=== PATIENT | female | born 1935 | race Caucasian/White ===

== ENCOUNTER 2017-08-04 11:14 | Inpatient (IN) | payer MEDICARE ==
[2017-08-04 12:05] LABS: ADD MAN DIFF? NO
[2017-08-04 12:08] LABS: WHITE BLOOD COUNT 9.6 10^3/ul (4.8-10.8)
[2017-08-04 12:08] LABS: BASOPHIL # 0.1 10^3/ul (0.0-0.1); BASOPHILS % 0.6 % (0.0-2.0); EOSINOPHILS # 0.2 10^3/ul (0.0-0.5); EOSINOPHILS % 1.6 % (0.0-7.0); HEMATOCRIT 38.6 % (37.0-47.0); HEMOGLOBIN 13.2 g/dl (12.0-16.0); LYMPHOCYTES # 1.9 10^3/ul (0.8-2.9); LYMPHOCYTES % 20.1 % (15.0-51.0); MEAN CORPUSCULAR HEMOGLOBIN 31.6 pg (29.0-33.0); MEAN CORPUSCULAR HGB CONC 34.2 g/dl (32.0-37.0); MEAN CORPUSCULAR VOLUME 92.3 fl (82.0-101.0); MEAN PLATELET VOLUME 11.8 fl (7.4-10.4); MONOCYTE # 0.7 10^3/ul (0.3-0.9); MONOCYTES % 7.5 % (0.0-11.0); NEUTROPHIL # 6.7 10^3/ul (1.6-7.5); NEUTROPHILS % 69.9 % (39.0-77.0); PLATELET COUNT 237 10^3/UL (140-415); RED BLOOD COUNT 4.18 10^6/ul (4.20-5.40); RED CELL DISTRIBUTION WIDTH 12.4 % (11.5-14.5)
[2017-08-04 12:38] LABS: ALANINE AMINOTRANSFERASE 21 IU/L (13-69); ALBUMIN 3.7 g/dl (3.3-4.9); ALBUMIN/GLOBULIN RATIO 1.23; ALKALINE PHOSPHATASE 64 IU/L (42-121); ANION GAP 14 (8-16); ASPARTATE AMINO TRANSFERASE 17 IU/L (15-46); BILIRUBIN,INDIRECT 0.7 mg/dl (0-1.1); BILIRUBIN,TOTAL 0.7 mg/dl (0.2-1.3); BLOOD UREA NITROGEN 21 mg/dl (7-20); CALCIUM 9.2 mg/dl (8.4-10.2); CARBON DIOXIDE 29 mmol/L (21-31); CHLORIDE 107 mmol/L (97-110); CREATININE 0.76 mg/dl (0.44-1.00); GLUCOSE 130 mg/dl (70-220); INR 0.98; POTASSIUM 4.2 mmol/L (3.5-5.1); PROTIME 13.1 Sec (11.9-14.9); SODIUM 146 mmol/L (135-144); TOTAL PROTEIN 6.7 g/dl (6.1-8.1)
[2017-08-04 12:39] LABS: PARTIAL THROMBOPLASTIN TIME 30.8 Sec (25.0-35.0)
[2017-08-04 12:49] LABS: B-TYPE NATRIURETIC PEPTIDE 1330 PG/ML (0-450)
[2017-08-04 12:58] LABS: VALPROATE < 10 ug/ml (50-100)
[2017-08-04 13:11] LABS: TROPONIN-I < 0.012 ng/ml (0.00-0.12)
[2017-08-04] MEDS: DILTIAZEM 50 MG INJ IV (13:27)
[2017-08-04] MEDS ORDERED: NACL 0.9% 3 ML SYG IV (14:30)
[2017-08-04] MEDS ORDERED: ACETAMINOPHEN 325 MG TAB PO ×2 (14:30)
[2017-08-04] MEDS ORDERED: HYDROCODONE/APAP (5/325) TAB PO (14:30)
[2017-08-04] MEDS ORDERED: ONDANSETRON 4 MG INJ IV ×2 (14:30)
[2017-08-04 15:00] LABS: HEMOGLOBIN A1C 5.4 % (0-5.9)
[2017-08-04 15:13] LABS: FREE T4 (FREE THYROXINE) 0.92 ng/dl (0.85-1.93)
[2017-08-04 19:26] LABS: CREATINE KINASE 78 IU/L (23-200)
[2017-08-04 19:36] LABS: CK INDEX 1.6; CK-MB 1.21 ng/ml (0.0-2.4)
[2017-08-04 19:38] LABS: TROPONIN-I < 0.012 ng/ml (0.00-0.12)
[2017-08-04] MEDS ORDERED: METOPROLOL 25 MG TAB PO (21:00)
[2017-08-04] MEDS: APIXABAN 5 MG TABLET PO (21:02)
[2017-08-04] MEDS: DIVALPROEX SPRINKLE 125 MG CAP PO (21:02)
[2017-08-04] MEDS: DILTIAZEM (CD) 120 MG CAP PO (21:03)
[2017-08-05 08:50] LABS: ADD MAN DIFF? NO
[2017-08-05 08:54] LABS: WHITE BLOOD COUNT 7.5 10^3/ul (4.8-10.8)
[2017-08-05 08:54] LABS: BASOPHILS % 0.5 % (0.0-2.0); EOSINOPHILS # 0.2 10^3/ul (0.0-0.5); HEMATOCRIT 35.4 % (37.0-47.0); HEMOGLOBIN 11.9 g/dl (12.0-16.0); LYMPHOCYTES # 2.4 10^3/ul (0.8-2.9); LYMPHOCYTES % 32.8 % (15.0-51.0); MEAN CORPUSCULAR HGB CONC 33.6 g/dl (32.0-37.0); MEAN CORPUSCULAR VOLUME 92.2 fl (82.0-101.0); MEAN PLATELET VOLUME 12.3 fl (7.4-10.4); MONOCYTE # 0.6 10^3/ul (0.3-0.9); MONOCYTES % 8.6 % (0.0-11.0); NEUTROPHIL # 4.2 10^3/ul (1.6-7.5); NEUTROPHILS % 55.8 % (39.0-77.0); PLATELET COUNT 193 10^3/UL (140-415); RED BLOOD COUNT 3.84 10^6/ul (4.20-5.40); RED CELL DISTRIBUTION WIDTH 12.7 % (11.5-14.5)
[2017-08-05] MEDS ORDERED: ENOXAPARIN 40 MG/0.4 ML SYG SC (09:00)
[2017-08-05 09:14] LABS: CHOLESTEROL 172 mg/dl (100-200)
[2017-08-05 09:14] LABS: CHOL/HDL RATIO 3.1 RATIO; HDL CHOLESTEROL 54 mg/dl (33-92); LDL CHOLESTEROL,CALCULATED 95 mg/dl; TRIGLYCERIDES 117 mg/dl (0-149)
[2017-08-05 09:21] LABS: ALANINE AMINOTRANSFERASE 24 IU/L (13-69); ALBUMIN 3.8 g/dl (3.3-4.9); ALBUMIN/GLOBULIN RATIO 1.26; ALKALINE PHOSPHATASE 69 IU/L (42-121); ANION GAP 13 (8-16); ASPARTATE AMINO TRANSFERASE 22 IU/L (15-46); BILIRUBIN,INDIRECT 0.8 mg/dl (0-1.1); BILIRUBIN,TOTAL 0.8 mg/dl (0.2-1.3); BLOOD UREA NITROGEN 23 mg/dl (7-20); CALCIUM 9.3 mg/dl (8.4-10.2); CARBON DIOXIDE 28 mmol/L (21-31); CHLORIDE 105 mmol/L (97-110); CREATININE 0.81 mg/dl (0.44-1.00); GLUCOSE 107 mg/dl (70-220); POTASSIUM 3.9 mmol/L (3.5-5.1); SODIUM 142 mmol/L (135-144); TOTAL PROTEIN 6.8 g/dl (6.1-8.1)
[2017-08-05] MEDS: DIVALPROEX SPRINKLE 125 MG CAP PO ×2 (09:22→13:11)
[2017-08-05 09:23] LABS: PHOSPHORUS 4.4 mg/dl (2.5-4.9)
[2017-08-05] MEDS: APIXABAN 5 MG TABLET PO (09:23)
[2017-08-05] MEDS: DILTIAZEM (CD) 120 MG CAP PO (09:23)
[2017-08-05] MEDS ORDERED: ATORVASTATIN 10 MG TAB PO (21:00)
== END 2017-08-05 14:06 | disposition home or self-care (01) | DRG 309 ==
LOC: E/R 11:14 → MS4 17:40
DX: I48.91 Unspecified atrial fibrillation (principal); E87.0 Hyperosmolality and hypernatremia; I10 Essential (primary) hypertension; R11.2 Nausea with vomiting, unspecified; E78.5 Hyperlipidemia, unspecified; F03.90 Unspecified dementia, unspecified severity, without behavioral disturbance, psychotic disturbance, mood disturbance, and anxiety; E86.0 Dehydration; E02 Subclinical iodine-deficiency hypothyroidism; Z79.02 Long term (current) use of antithrombotics/antiplatelets
CPT/HCPCS: 36415; 71045; 80053; 80061; 80164; 82550; 82553; 83036; 83735; 83880; 84100; 84439; 84443; 84484; 85025; 85610; 85730; 93005; 93306; 96374; 99291-25

== ENCOUNTER 2017-10-11 19:57 | Inpatient (IN) | payer MEDICARE, OTHER ==
[2017-10-11 20:36] LABS: ADD MAN DIFF? NO
[2017-10-11 20:40] LABS: BASOPHILS % 0.3 % (0.0-2.0); EOSINOPHILS % 0.1 % (0.0-7.0); HEMOGLOBIN 13.3 g/dl (12.0-16.0); LYMPHOCYTES # 2.2 10^3/ul (0.8-2.9); LYMPHOCYTES % 17.8 % (15.0-51.0); MEAN CORPUSCULAR HEMOGLOBIN 30.9 pg (29.0-33.0); MEAN CORPUSCULAR HGB CONC 33.3 g/dl (32.0-37.0); MEAN CORPUSCULAR VOLUME 92.8 fl (82.0-101.0); MEAN PLATELET VOLUME 12.2 fl (7.4-10.4); MONOCYTE # 1.4 10^3/ul (0.3-0.9); MONOCYTES % 11.4 % (0.0-11.0); NEUTROPHIL # 8.6 10^3/ul (1.6-7.5); NEUTROPHILS % 69.9 % (39.0-77.0); PLATELET COUNT 210 10^3/UL (140-415); RED BLOOD COUNT 4.31 10^6/ul (4.20-5.40); RED CELL DISTRIBUTION WIDTH 13.2 % (11.5-14.5)
[2017-10-11 20:40] LABS: WHITE BLOOD COUNT 12.3 10^3/ul (4.8-10.8)
[2017-10-11 20:49] LABS: ADD UMIC YES; UR ASCORBIC ACID 40 mg/dL (NEGATIVE); UR BILIRUBIN (Dip) NEGATIVE (NEGATIVE); UR BLOOD (Dip) NEGATIVE (NEGATIVE); UR CLARITY SLIGHTLY CLOUDY (CLEAR); UR COLOR AMBER (YELLOW); UR GLUCOSE (Dip) 1+ mg/dL (NEGATIVE); UR KETONES (Dip) NEGATIVE (NEGATIVE); UR LEUKOCYTE ESTERASE (Dip) NEGATIVE Leu/ul (NEGATIVE); UR MUCUS MANY /HPF (NONE SEEN); UR NITRITE (Dip) NEGATIVE (NEGATIVE); UR RBC 11 /HPF (0-5); UR SPECIFIC GRAVITY (Dip) 1.031 (1.003-1.030); UR TOTAL PROTEIN (Dip) 1+ mg/dl (NEGATIVE); UR UROBILINOGEN (Dip) 1+ mg/dL (NEGATIVE); UR WBC 3 /HPF (0-5)
[2017-10-11 20:57] LABS: ALANINE AMINOTRANSFERASE 23 IU/L (13-69); ALBUMIN 3.4 g/dl (3.3-4.9); ALBUMIN/GLOBULIN RATIO 1.03; ALKALINE PHOSPHATASE 58 IU/L (42-121); AMPHETAMINE/METHAMPHETAMINE Negative (NEGATIVE); ANION GAP 11 (8-16); ASPARTATE AMINO TRANSFERASE 26 IU/L (15-46); BARBITURATES Negative (NEGATIVE); BENZODIAZEPINES Negative (NEGATIVE); BILIRUBIN,INDIRECT 0.5 mg/dl (0-1.1); BILIRUBIN,TOTAL 0.5 mg/dl (0.2-1.3); BLOOD UREA NITROGEN 28 mg/dl (7-20); CALCIUM 9.4 mg/dl (8.4-10.2); CANNABINOIDS Negative (NEGATIVE); CARBON DIOXIDE 29 mmol/L (21-31); CHLORIDE 106 mmol/L (97-110); COCAINE Negative (NEGATIVE); CREATININE 0.87 mg/dl (0.44-1.00); GLUCOSE 208 mg/dl (70-220); OPIATES Negative (NEGATIVE); POTASSIUM 4.1 mmol/L (3.5-5.1); SODIUM 142 mmol/L (135-144); TOTAL PROTEIN 6.7 g/dl (6.1-8.1)
[2017-10-11 21:03] LABS: ACETAMINOPHEN < 10.0 ug/ml (10.0-30.0); ETHANOL < 10.0 mg/dl; SALICYLATE < 1.0 mg/dl (5.0-30.0)
[2017-10-11 21:08] LABS: TROPONIN-I 0.012 ng/ml (0.000-0.120)
[2017-10-11] MEDS: SOD CHLORIDE 0.9% 1,000 ML IV (21:27)
[2017-10-11] MEDS: ONDANSETRON 4 MG INJ IV (21:39)
[2017-10-12] MEDS: ASPIRIN 300 MG SUPP PR (01:23)
[2017-10-12] MEDS: CEFEPIME 2GM/50 ML (PMX) 50 ML IVPB (01:23)
[2017-10-12 01:49] LABS: LACTIC ACID 1.3 mmol/L (0.5-2.0)
[2017-10-12 04:05] LABS: LACTIC ACID 1.1 mmol/L (0.5-2.0)
[2017-10-12] MEDS: SOD CHLORIDE 0.9% 1,000 ML IV ×2 (04:33→16:41)
[2017-10-12 07:42] LABS: ADD MAN DIFF? NO
[2017-10-12 07:48] LABS: BASOPHIL # 0.1 10^3/ul (0.0-0.1); BASOPHILS % 0.5 % (0.0-2.0); EOSINOPHILS # 0.1 10^3/ul (0.0-0.5); EOSINOPHILS % 0.7 % (0.0-7.0); HEMATOCRIT 35.3 % (37.0-47.0); HEMOGLOBIN 11.3 g/dl (12.0-16.0); LYMPHOCYTES # 2.5 10^3/ul (0.8-2.9); LYMPHOCYTES % 21.4 % (15.0-51.0); MEAN CORPUSCULAR HEMOGLOBIN 30.6 pg (29.0-33.0); MEAN CORPUSCULAR VOLUME 95.7 fl (82.0-101.0); MEAN PLATELET VOLUME 12.7 fl (7.4-10.4); MONOCYTE # 1.5 10^3/ul (0.3-0.9); MONOCYTES % 12.6 % (0.0-11.0); NEUTROPHIL # 7.4 10^3/ul (1.6-7.5); NEUTROPHILS % 64.5 % (39.0-77.0); PLATELET COUNT 162 10^3/UL (140-415); RED BLOOD COUNT 3.69 10^6/ul (4.20-5.40); RED CELL DISTRIBUTION WIDTH 13.1 % (11.5-14.5)
[2017-10-12 07:48] LABS: WHITE BLOOD COUNT 11.5 10^3/ul (4.8-10.8)
[2017-10-12 08:05] LABS: LACTIC ACID 1.2 mmol/L (0.5-2.0)
[2017-10-12 08:33] LABS: ANION GAP 11 (8-16); BLOOD UREA NITROGEN 32 mg/dl (7-20); CALCIUM 8.8 mg/dl (8.4-10.2); CARBON DIOXIDE 29 mmol/L (21-31); CHLORIDE 108 mmol/L (97-110); CREATININE 0.76 mg/dl (0.44-1.00); GLUCOSE 119 mg/dl (70-220); MAGNESIUM 2.2 mg/dl (1.7-2.5); POTASSIUM 4.8 mmol/L (3.5-5.1); SODIUM 143 mmol/L (135-144)
[2017-10-12] MEDS: CEFTRIAXONE 1 GM/50 ML (PMX) 50 ML IVPB (10:11)
[2017-10-12] MEDS ORDERED: LEVETIRACETAM 500 MG TAB PO (21:00)
[2017-10-12] MEDS: APIXABAN 5 MG TABLET PO (21:55)
[2017-10-12] MEDS: ATORVASTATIN 10 MG TAB PO (21:55)
[2017-10-12] MEDS: DIVALPROEX SPRINKLE 125 MG CAP PO (21:55)
[2017-10-12] MEDS ORDERED: VANCOMYCIN IV PER PHARMACY XX (22:00)
[2017-10-13] MEDS: VANCOMYCIN 1 GM 250 ML IVPB (00:33)
[2017-10-13] MEDS: LEVOTHYROXINE 25 MCG TAB PO (05:23)
[2017-10-13 08:11] LABS: ADD MAN DIFF? NO
[2017-10-13 08:14] LABS: WHITE BLOOD COUNT 11.3 10^3/ul (4.8-10.8)
[2017-10-13 08:14] LABS: BASOPHIL # 0.1 10^3/ul (0.0-0.1); BASOPHILS % 0.5 % (0.0-2.0); EOSINOPHILS # 0.3 10^3/ul (0.0-0.5); EOSINOPHILS % 2.7 % (0.0-7.0); HEMATOCRIT 33.4 % (37.0-47.0); LYMPHOCYTES # 2.2 10^3/ul (0.8-2.9); LYMPHOCYTES % 19.5 % (15.0-51.0); MEAN CORPUSCULAR HEMOGLOBIN 31.5 pg (29.0-33.0); MEAN CORPUSCULAR HGB CONC 32.9 g/dl (32.0-37.0); MEAN CORPUSCULAR VOLUME 95.7 fl (82.0-101.0); MEAN PLATELET VOLUME 12.3 fl (7.4-10.4); MONOCYTE # 1.2 10^3/ul (0.3-0.9); MONOCYTES % 10.7 % (0.0-11.0); NEUTROPHIL # 7.5 10^3/ul (1.6-7.5); NEUTROPHILS % 66.2 % (39.0-77.0); PLATELET COUNT 210 10^3/UL (140-415); RED BLOOD COUNT 3.49 10^6/ul (4.20-5.40); RED CELL DISTRIBUTION WIDTH 12.9 % (11.5-14.5)
[2017-10-13] MEDS: ASPIRIN (EC) 81 MG TAB PO (08:38)
[2017-10-13] MEDS: DILTIAZEM (CD) 120 MG CAP PO (08:39)
[2017-10-13] MEDS: DIVALPROEX SPRINKLE 125 MG CAP PO ×3 (08:39→20:58)
[2017-10-13] MEDS: APIXABAN 5 MG TABLET PO ×2 (08:40→20:58)
[2017-10-13] MEDS: CEFTRIAXONE 1 GM/50 ML (PMX) 50 ML IVPB (08:40)
[2017-10-13 08:45] LABS: ANION GAP 11 (8-16); BLOOD UREA NITROGEN 23 mg/dl (7-20); CALCIUM 8.5 mg/dl (8.4-10.2); CARBON DIOXIDE 28 mmol/L (21-31); CHLORIDE 109 mmol/L (97-110); CREATININE 0.59 mg/dl (0.44-1.00); GLUCOSE 112 mg/dl (70-220); POTASSIUM 4.2 mmol/L (3.5-5.1); SODIUM 144 mmol/L (135-144)
[2017-10-13 08:46] LABS: PHOSPHORUS 3.1 mg/dl (2.5-4.9)
[2017-10-13 08:46] LABS: CHOLESTEROL 128 mg/dl (100-200); HDL CHOLESTEROL 21 mg/dl (33-92); LDL CHOLESTEROL,CALCULATED 73 mg/dl; MAGNESIUM 2.1 mg/dl (1.7-2.5); TRIGLYCERIDES 169 mg/dl (0-149)
[2017-10-13 08:50] LABS: DIGOXIN 0.5 ng/ml (1.0-2.0)
[2017-10-13] MEDS ORDERED: ATORVASTATIN 10 MG TAB PO (09:00)
[2017-10-13 09:19] LABS: HEMOGLOBIN A1C 5.8 % (0-5.9)
[2017-10-13] MEDS: SOD CHLORIDE 0.9% 1,000 ML IV ×4 (10:00→20:00)
[2017-10-13] MEDS: DIGOXIN 0.125 MG TAB PO (12:15)
[2017-10-13] MEDS: ATORVASTATIN 10 MG TAB PO (20:58)
[2017-10-13] MEDS: VANCOMYCIN 750 MG in SOD CHLORIDE 0.9% 150 ML IVPB (22:34)
[2017-10-14] MEDS: SOD CHLORIDE 0.9% 1,000 ML IV ×2 (03:18→13:43)
[2017-10-14] MEDS: LEVOTHYROXINE 25 MCG TAB PO (06:43)
[2017-10-14] MEDS: CEFTRIAXONE 1 GM/50 ML (PMX) 50 ML IVPB (08:39)
[2017-10-14] MEDS: APIXABAN 5 MG TABLET PO ×2 (08:40→20:40)
[2017-10-14] MEDS: DILTIAZEM (CD) 120 MG CAP PO (08:40)
[2017-10-14] MEDS: DIVALPROEX SPRINKLE 125 MG CAP PO ×3 (08:40→20:40)
[2017-10-14] MEDS: ASPIRIN (EC) 81 MG TAB PO (08:41)
[2017-10-14 08:43] LABS: ADD MAN DIFF? NO
[2017-10-14 08:45] LABS: BASOPHIL # 0.1 10^3/ul (0.0-0.1); BASOPHILS % 0.6 % (0.0-2.0); EOSINOPHILS # 0.3 10^3/ul (0.0-0.5); EOSINOPHILS % 2.8 % (0.0-7.0); HEMATOCRIT 33.6 % (37.0-47.0); HEMOGLOBIN 11.1 g/dl (12.0-16.0); LYMPHOCYTES # 1.8 10^3/ul (0.8-2.9); LYMPHOCYTES % 17.6 % (15.0-51.0); MEAN CORPUSCULAR VOLUME 93.9 fl (82.0-101.0); MEAN PLATELET VOLUME 12.4 fl (7.4-10.4); MONOCYTES % 9.8 % (0.0-11.0); NEUTROPHIL # 6.9 10^3/ul (1.6-7.5); NEUTROPHILS % 68.8 % (39.0-77.0); PLATELET COUNT 251 10^3/UL (140-415); RED BLOOD COUNT 3.58 10^6/ul (4.20-5.40); RED CELL DISTRIBUTION WIDTH 12.5 % (11.5-14.5)
[2017-10-14 09:07] LABS: MAGNESIUM 1.9 mg/dl (1.7-2.5)
[2017-10-14 09:07] LABS: PHOSPHORUS 2.8 mg/dl (2.5-4.9)
[2017-10-14 09:09] LABS: ANION GAP 13 (8-16); BLOOD UREA NITROGEN 14 mg/dl (7-20); CALCIUM 8.5 mg/dl (8.4-10.2); CARBON DIOXIDE 29 mmol/L (21-31); CHLORIDE 104 mmol/L (97-110); GLUCOSE 124 mg/dl (70-220); POTASSIUM 3.9 mmol/L (3.5-5.1); SODIUM 142 mmol/L (135-144)
[2017-10-14] MEDS: DIGOXIN 0.125 MG TAB PO (12:12)
[2017-10-14] MEDS: ATORVASTATIN 10 MG TAB PO (20:40)
[2017-10-14] MEDS: VANCOMYCIN 750 MG in SOD CHLORIDE 0.9% 150 ML IVPB (22:55)
[2017-10-15] MEDS: SOD CHLORIDE 0.9% 1,000 ML IV ×2 (01:52→12:09)
[2017-10-15] MEDS: LEVOTHYROXINE 25 MCG TAB PO (06:15)
[2017-10-15] MEDS: APIXABAN 5 MG TABLET PO (08:26)
[2017-10-15] MEDS: ASPIRIN (EC) 81 MG TAB PO (08:26)
[2017-10-15] MEDS: DIVALPROEX SPRINKLE 125 MG CAP PO ×2 (08:26→12:08)
[2017-10-15] MEDS: DILTIAZEM (CD) 120 MG CAP PO (08:26)
[2017-10-15 09:26] LABS: ADD MAN DIFF? NO
[2017-10-15 09:36] LABS: BASOPHIL # 0.1 10^3/ul (0.0-0.1); BASOPHILS % 0.7 % (0.0-2.0); EOSINOPHILS # 0.2 10^3/ul (0.0-0.5); EOSINOPHILS % 1.7 % (0.0-7.0); HEMATOCRIT 38.1 % (37.0-47.0); HEMOGLOBIN 12.5 g/dl (12.0-16.0); LYMPHOCYTES % 20.3 % (15.0-51.0); MEAN CORPUSCULAR HEMOGLOBIN 31.2 pg (29.0-33.0); MEAN CORPUSCULAR HGB CONC 32.8 g/dl (32.0-37.0); MEAN PLATELET VOLUME 12.3 fl (7.4-10.4); MONOCYTE # 1.1 10^3/ul (0.3-0.9); MONOCYTES % 11.1 % (0.0-11.0); NEUTROPHIL # 6.4 10^3/ul (1.6-7.5); NEUTROPHILS % 65.8 % (39.0-77.0); PLATELET COUNT 312 10^3/UL (140-415); RED BLOOD COUNT 4.01 10^6/ul (4.20-5.40); RED CELL DISTRIBUTION WIDTH 12.4 % (11.5-14.5)
[2017-10-15 09:36] LABS: WHITE BLOOD COUNT 9.7 10^3/ul (4.8-10.8)
[2017-10-15 10:05] LABS: ANION GAP 13 (8-16); BLOOD UREA NITROGEN 10 mg/dl (7-20); CARBON DIOXIDE 33 mmol/L (21-31); CHLORIDE 103 mmol/L (97-110); CREATININE 0.56 mg/dl (0.44-1.00); GLUCOSE 119 mg/dl (70-220); SODIUM 145 mmol/L (135-144)
[2017-10-15 10:09] LABS: MAGNESIUM 2.1 mg/dl (1.7-2.5)
[2017-10-15] MEDS: DIGOXIN 0.125 MG TAB PO (12:08)
== END 2017-10-15 18:05 | disposition home or self-care (01) | DRG 92 ==
LOC: E/R 19:57 → MS4 10-12 00:36
DX: G92 Toxic encephalopathy (principal); I69.351 Hemiplegia and hemiparesis following cerebral infarction affecting right dominant side; F03.90 Unspecified dementia, unspecified severity, without behavioral disturbance, psychotic disturbance, mood disturbance, and anxiety; I48.91 Unspecified atrial fibrillation; G40.909 Epilepsy, unspecified, not intractable, without status epilepticus; I10 Essential (primary) hypertension; E78.5 Hyperlipidemia, unspecified; E03.9 Hypothyroidism, unspecified; I69.320 Aphasia following cerebral infarction; Z79.02 Long term (current) use of antithrombotics/antiplatelets; Z79.82 Long term (current) use of aspirin; Z79.01 Long term (current) use of anticoagulants
CPT/HCPCS: 36415; 70450; 71045; 80048; 80053; 80061; 80162; 80307; 81001; 82962; 83036; 83605; 83735; 84100; 84439; 84443; 84484; 85025; 87040; 87086; 92526; 92610; 93005; 96361; 96374; 97162; 99285-25